=== PATIENT | male | born 1960 | race Caucasian/White ===

== ENCOUNTER 2022-10-08 04:35 | Day surgery (SDC) | payer OTHER ==
[2022-10-06 12:06] VITALS: BMI 34.0
[2022-10-08] MEDS ORDERED: ONDANSETRON 4 MG/2 ML VIAL ONE (14:05)
[2022-10-08] MEDS ORDERED: PROPOFOL 20 ML ONE (14:05)
[2022-10-08] MEDS ORDERED: LIDOCAINE HCL/PF 2% SDV 5ML VIAL ONE ×2 (14:05→14:07)
[2022-10-08] MEDS ORDERED: ceFAZolin SODIUM 1 GM VIAL ONE (14:05)
[2022-10-08] MEDS ORDERED: MIDAZOLAM HCL 2 MG/2 ML SINGLE DOSE VIAL ONE (14:05)
[2022-10-08] MEDS ORDERED: LIDOCAINE HCL 2% JELLY 11 ML TP ONE (14:12)
[2022-10-08] MEDS ORDERED: ceFAZolin SODIUM 1 GM VIAL IVPB ONE (14:28)
[2022-10-08] MEDS ORDERED: oxyCODONE HCL 5 MG TABLET PO PRN (15:41)
[2022-10-08] MEDS ORDERED: ONDANSETRON 4 MG/2 ML VIAL IVPUSH PRN (15:41)
[2022-10-08] MEDS ORDERED: LACTATED RINGERS SOLUTION 1,000 ML IV SCH (15:45)
[2022-10-08 17:33] VITALS: PULSE 63; RESP 18
[2022-10-08 18:17] VITALS: BP 160/80; TEMP 97.5
== END 2022-10-08 18:30 | disposition home or self-care (01) ==
LOC: JASU-SURG 04:35
PROVIDERS: ATTEND Urology
PROC: 0VT08ZZ Resection of Prostate, Via Natural or Artificial Opening Endoscopic (ICD-10-PCS; 2022-10-08)
PROC: 0TBB8ZZ Excision of Bladder, Via Natural or Artificial Opening Endoscopic (ICD-10-PCS; principal; 2022-10-08 14:30)
DX: N30.80 Other cystitis without hematuria (principal); N40.1 Benign prostatic hyperplasia with lower urinary tract symptoms; R33.8 Other retention of urine; N32.89 Other specified disorders of bladder
CPT/HCPCS: 88305-TC; 94760

== ENCOUNTER 2023-09-17 09:12 | Inpatient (IN) | payer OTHER ==
[2023-09-17] MEDS ORDERED: morphine SULFATE 4 MG/ML VIAL ONE (09:52)
[2023-09-17] MEDS: morphine CARPU-JECT 4 MG/1 ML DISP.SYRIN IVPUSH ONE (09:55)
[2023-09-17 10:14] LABS: HEMATOCRIT 32.6 % (35.4-49); HEMOGLOBIN 11.3 G/dL (11.7-16.9); MCH 31.7 pg (25.7-33.7); MCHC 34.6 g/dl (32.0-35.9); MEAN CELL VOLUME 91.6 fl (80-96); MEAN PLT VOLUME 7.8 fl (7.5-11.1); PLATELET COUNT 373.8 10^3/uL (134-434); RBC 3.56 10^6/uL (4.00-5.60); RDW 14.9 % (11.9-15.9)
[2023-09-17] MEDS ORDERED: KETOROLAC TROMETHAMINE 30 MG/1 ML VIAL IVPUSH PRN (12:12)
[2023-09-17] MEDS ORDERED: ALBUTEROL SO4 0.042% IH SOL 1.25 MG/3 ML VIAL.NEB NEB PRN (12:12)
[2023-09-17 12:30] LABS: LACTIC ACID 2.3 mmol/L (0.4-2.0)
[2023-09-17] MEDS: PIPERACILLIN/TAZOB 2.25 GM 2.25 GM in DEXTROSE 5%-WATER - 50 ML IVPB ONE (12:30)
[2023-09-17 12:41] LABS: ANISOCYTOSIS 1+; MACROCYTOSIS 1+; PLATELET ESTIMATE ADEQUATE
[2023-09-17 13:17] LABS: POTASSIUM 4.2 mmol/L (3.5-5.1)
[2023-09-17 13:18] LABS: CALCIUM 8.2 mg/dL (8.5-10.1)
[2023-09-17 13:19] LABS: ALBUMIN 2.8 g/dl (3.4-5.0)
[2023-09-17 13:24] LABS: TOT PROT 6.4 g/dl (6.4-8.2)
[2023-09-17 13:31] LABS: BILIRUBIN,TOTAL 1.9 mg/dL (0.2-1)
[2023-09-17] MEDS: ACETAMINOPHEN 1000 MG/100 ML BAG IVPB PRN (15:35)
[2023-09-17] MEDS ORDERED: NALOXONE HCL 0.4 MG/ML VIAL IVPUSH PRN (16:46)
[2023-09-17] MEDS: INSULIN ASPART SLIDING SCALE (NOVOLOG) 1 VIAL SQ SCH (17:00)
[2023-09-17] MEDS: HYDROmorphone HCl 2 MG/ML VIAL IVPB PRN (17:00)
[2023-09-17] MEDS: PIPERACILLIN/TAZOB 4.5 GM 4.5 GM in DEXTROSE 5%-WATER 100 ML IVPB SCH (18:22)
[2023-09-17] MEDS: traMADol HCL 50 MG TABLET PO PRN (20:50)
[2023-09-17] MEDS: ATORVASTATIN CA 20 MG TABLET (FP) PO SCH (21:00)
[2023-09-17] MEDS: DOCUSATE SODIUM 100 MG CAPSULE (FP) PO SCH (21:00)
[2023-09-17] MEDS: MELATONIN 5 MG TABLETS PO PRN (21:00)
[2023-09-18] MEDS: LIDOCAINE 5% TOPICAL PATCH TP SCH (03:24)
[2023-09-18] MEDS: LIDOCAINE PATCH REMOVAL MC SCH (07:28)
[2023-09-18 07:46] LABS: HEMATOCRIT 28.4 % (35.4-49); HEMOGLOBIN 9.8 GM/dL (11.7-16.9); MCH 31.4 pg (25.7-33.7); MCHC 34.5 g/dl (32.0-35.9); MEAN PLT VOLUME 6.9 fl (7.5-11.1); PLATELET COUNT 381 10^3/uL (134-434); RBC 3.13 M/mm3 (4.00-5.60); RDW 14.7 % (11.9-15.9); WHITE BLOOD COUNT 10.8 K/mm3 (4.0-10.0)
[2023-09-18 08:06] LABS: POTASSIUM 4.2 mmol/L (3.5-5.1)
[2023-09-18] MEDS: TAMSULOSIN HCL 0.4 MG CAP PO SCH (08:11)
[2023-09-18 08:16] LABS: BILIRUBIN,TOTAL 1.4 mg/dL (0.2-1)
[2023-09-18 08:17] LABS: CREATININE 0.9 mg/dL (0.55-1.3); TOT PROT 5.3 g/dl (6.4-8.2)
[2023-09-18 08:18] LABS: CALCIUM 8.2 mg/dL (8.5-10.1)
[2023-09-18 08:19] LABS: MAGNESIUM 2.1 mg/dL (1.8-2.4)
[2023-09-18 08:21] LABS: BLOOD UREA NITROGEN 18.4 mg/dL (7-18)
[2023-09-18 08:27] LABS: ALBUMIN 2.2 g/dl (3.4-5.0)
[2023-09-18] MEDS: EMPAGLIFLOZIN (JARDIANCE) 10 MG TABLET PO SCH (09:00)
[2023-09-18] MEDS: FINASTERIDE 5 MG TABLET (FP) PO SCH (09:00)
[2023-09-18] MEDS: POLYETHYLENE GLYCOL (HEALTHYLAX) 3350 17 GM PACKET PO SCH (09:00)
[2023-09-18] MEDS: guaiFENesin/CODEINE 10 ML UNIT-DOSE CUPS PO PRN (09:10)
[2023-09-18] MEDS ORDERED: POLYETHYLENE GLYCOL (HEALTHYLAX) 3350 17 GM PACKET PO SCH (10:00)
[2023-09-18] MEDS ORDERED: ENOXAPARIN NA (PORCINE) 40 MG/0.4 ML DISP.SYRIN SQ SCH (10:00)
[2023-09-18] MEDS: FOLIC ACID INJECTION - 1 MG, THIAMINE HCL 100 MG, MULTIVIT INJECTION ADULT 10 ML in SOD... IVPB ONE (12:47)
[2023-09-18] MEDS: IRON SUCROSE INJECTION 200 MG in SODIUM CHLORIDE 90 ML IVPB ONE (12:47)
[2023-09-18 13:07] LABS: INR 1.14 (0.83-1.09); PROTHROMBIN TIME (PATIENT) 13.2 SEC (9.7-13.0)
[2023-09-18] MEDS ORDERED: INSULIN (NOVOLOG) ASPART 100 UNITS/ML 10ML VIAL ONE (14:57)
[2023-09-18] MEDS: ENOXAPARIN NA (PORCINE) 40 MG/0.4 ML DISP.SYRIN SQ SCH (15:04)
[2023-09-18] MEDS ORDERED: BACLOFEN 10 MG TABLET (FP) PO SCH (17:30)
[2023-09-18] MEDS: ACETAMINOPHEN 1000 MG/100 ML BAG IVPB PRN (18:14)
[2023-09-18] MEDS: GABAPENTIN 300 MG CAPSULE PO SCH (21:16)
[2023-09-19 06:49] LABS: HEMATOCRIT 29.5 % (35.4-49); MEAN CELL VOLUME 91.2 fl (80-96); MEAN PLT VOLUME 6.9 fl (7.5-11.1); PLATELET COUNT 474 10^3/uL (134-434); RBC 3.23 M/mm3 (4.00-5.60); RDW 14.4 % (11.9-15.9); WHITE BLOOD COUNT 12.2 K/mm3 (4.0-10.0)
[2023-09-19 06:59] LABS: POTASSIUM 4.2 mmol/L (3.5-5.1)
[2023-09-19 07:06] LABS: BLOOD UREA NITROGEN 15.8 mg/dL (7-18)
[2023-09-19 07:07] LABS: CALCIUM 8.2 mg/dL (8.5-10.1)
[2023-09-19 07:08] LABS: ALBUMIN 2.2 g/dl (3.4-5.0); MAGNESIUM 1.9 mg/dL (1.8-2.4); PHOSPHOROUS 3.3 mg/dL (2.5-4.9)
[2023-09-19 07:09] LABS: CREATININE 0.7 mg/dL (0.55-1.3)
[2023-09-19 07:10] LABS: BILIRUBIN,TOTAL 1.7 mg/dL (0.2-1); TOT PROT 5.5 g/dl (6.4-8.2)
[2023-09-19] MEDS: FUROSEMIDE 20 MG TABLET (FP) PO PRN (09:35)
[2023-09-19] MEDS: BACLOFEN 10 MG TABLET (FP) PO PRN (09:35)
[2023-09-19 12:41] VITALS: BMI 34.5
[2023-09-19] MEDS: guaiFENesin/CODEINE 5 ML UNIT-DOSE CUPS PO PRN (14:42)
[2023-09-19] MEDS: Methylnaltrexone Bromide 12 MG/0.6 ML KIT SQ SCH (18:12)
[2023-09-19] MEDS: KETOROLAC TROMETHAMINE 15 MG/ML VIAL IVPUSH PRN (21:27)
[2023-09-20 06:35] LABS: BASO % 0.5 % (0-2.0); HEMATOCRIT 30.4 % (35.4-49); HEMOGLOBIN 10.3 GM/dL (11.7-16.9); LYMPH % 13.8 % (8-40); MCH 31.3 pg (25.7-33.7); MCHC 34.1 g/dl (32.0-35.9); MEAN CELL VOLUME 91.9 fl (80-96); MEAN PLT VOLUME 6.7 fl (7.5-11.1); NEUT % 71.7 % (42.8-82.8); PLATELET COUNT 513 10^3/uL (134-434); RDW 14.7 % (11.9-15.9); WHITE BLOOD COUNT 12.7 K/mm3 (4.0-10.0)
[2023-09-20 06:48] LABS: POTASSIUM 4.4 mmol/L (3.5-5.1)
[2023-09-20 06:51] LABS: ALBUMIN 2.1 g/dl (3.4-5.0); BLOOD UREA NITROGEN 16.5 mg/dL (7-18); MAGNESIUM 2.3 mg/dL (1.8-2.4)
[2023-09-20 06:54] LABS: PHOSPHOROUS 3.2 mg/dL (2.5-4.9)
[2023-09-20 06:56] LABS: BILIRUBIN,TOTAL 1.1 mg/dL (0.2-1); TOT PROT 5.5 g/dl (6.4-8.2)
[2023-09-20 07:00] LABS: CALCIUM 7.8 mg/dL (8.5-10.1); CREATININE 0.9 mg/dL (0.55-1.3)
[2023-09-20] MEDS: MULTIVITAMINS (DAILY MVI) TABLET (FP) PO SCH (09:14)
[2023-09-20] MEDS: AMINO ACIDS/PROTEIN HYDROLYS 30 ML LIQUID.PKT PO SCH (09:14)
[2023-09-20] MEDS: KETOROLAC TROMETHAMINE 30 MG/1 ML VIAL IVPUSH PRN (09:16)
[2023-09-20] MEDS: METHYLNALTREXONE BROMIDE 8 MG/0.4 ML SYRINGE SQ SCH (09:21)
[2023-09-20] MEDS: FUROSEMIDE 40 MG/4 ML INJECTABLE VIAL IVPUSH ONE (21:30)
[2023-09-20 21:55] LABS: N-TERMINAL BNP 105.1 pg/ml (5-125)
[2023-09-21 00:19] VITALS: TEMP 97.5
[2023-09-21 03:05] VITALS: BP 122/76; PULSE 88; RESP 18
== END 2023-09-21 03:33 | disposition short-term general hospital (02) | DRG 184 ==
LOC: FER 09:12 → UNDOADMIN 10:02 → FM/S 10:02 → JICU 16:41
PROVIDERS: ADMIT Family Medicine; ATTEND Family Medicine
DX: S22.43XA Multiple fractures of ribs, bilateral, initial encounter for closed fracture (principal); E87.20 Acidosis, unspecified; J91.8 Pleural effusion in other conditions classified elsewhere; R04.2 Hemoptysis; I10 Essential (primary) hypertension; E78.5 Hyperlipidemia, unspecified; N40.0 Benign prostatic hyperplasia without lower urinary tract symptoms; G47.30 Sleep apnea, unspecified; R26.81 Unsteadiness on feet; D64.9 Anemia, unspecified; R52 Pain, unspecified; G47.33 Obstructive sleep apnea (adult) (pediatric); E11.9 Type 2 diabetes mellitus without complications; W11.XXXA Fall on and from ladder, initial encounter; Y93.89 Activity, other specified; Y92.89 Other specified places as the place of occurrence of the external cause; Y99.8 Other external cause status
CPT/HCPCS: 0241U-QW; 36415; 71045-TC-FY; 71275-TC; 80053; 80061; 82728; 82962; 83036; 83540; 83550; 83605; 83735; 83880; 84100; 84443; 84484; 85025; 85027; 85610; 86850; 86900; 86901; 87040; 87070; 87205; 93005; 93306-TC; 93970-TC; 97116-GP; 97161-GP; 99285-25; J0131; J0475; J1756; Q9967